=== PATIENT | male | born 1985 | race Hispanic/Latino ===

== ENCOUNTER 2024-05-01 12:19 | Emergency (ER) | payer SELFPAY ==
[~2024-05-01] VITALS: Ht 167.6 cm; Wt 90.0 kg
[2024-05-01 12:27] VITALS: BP 142/91
[2024-05-01] MEDS ORDERED: FLOXIN OTIC0.3 % OT (12:29)
[2024-05-01 12:30] VITALS: BP 130/95
[2024-05-01] MEDS ORDERED: AMOX/K CLAV875 M1 PO (12:33)
[2024-05-01] MEDS ORDERED: IBUPROFEN600 MG PO (12:33)
[2024-05-01 12:46] VITALS: BP 141/90
[2024-05-01] MEDS ORDERED: KETOROLAC TROMETHAMINE 30 MG/ML SDV IM ONE (13:00)
[2024-05-01 13:09] VITALS: BP 141/90
== END 2024-05-01 13:17 | disposition home or self-care (01) | DRG 153 ==
LOC: ED 12:19
DX: H66.92 Otitis media, unspecified, left ear (principal); H60.92 Unspecified otitis externa, left ear; F17.210 Nicotine dependence, cigarettes, uncomplicated